=== PATIENT | female | born 1970 | race Caucasian/White ===

== ENCOUNTER → 2022-09-10 | Outpatient (CLI) | payer OTHER | LOC: M WHC 15:07 | PROVIDERS: ATTEND Family Medicine | DX: Z12.31 Encounter for screening mammogram for malignant neoplasm of breast (principal); Z80.3 Family history of malignant neoplasm of breast ==

== ENCOUNTER 2022-10-26 14:46 | Emergency (ER) | payer OTHER ==
[~2022-10-26] VITALS: Ht 157.5 cm; Wt 86.2 kg
[2022-10-26] MEDS ORDERED: KETOROLAC 60MG 2ML VIAL IM ONE (17:55)
[2022-10-26 18:46] VITALS: BP 130/70; TEMP 99.4; O2SAT 100
== END 2022-10-26 18:55 | disposition home or self-care (01) ==
LOC: M ED 14:46
DX: S60.221A Contusion of right hand, initial encounter (principal); S60.012A Contusion of left thumb without damage to nail, initial encounter; W19.XXXA Unspecified fall, initial encounter; Y92.89 Other specified places as the place of occurrence of the external cause
CPT/HCPCS: 73130; 96372; 99283; J1885

== ENCOUNTER → 2022-10-28 | Outpatient (CLI) | payer OTHER | LOC: M CARPUL 07:48 | PROVIDERS: ATTEND Nurse Practitioner Adult Health | DX: R06.02 Shortness of breath (principal) ==

== ENCOUNTER → 2022-10-30 | Outpatient (CLI) | payer OTHER ==
[~2022-10-30] MED LIST: METHACHOLINE KIT INH ONE
== END ==
LOC: M CARPUL 08:22
PROVIDERS: ATTEND Nurse Practitioner Adult Health
DX: R06.02 Shortness of breath (principal)
CPT/HCPCS: 94070; J7674

== ENCOUNTER → 2023-02-18 | Outpatient (CLI) | payer OTHER | LOC: M SLEEP 20:00 | PROVIDERS: ATTEND Nurse Practitioner Adult Health | DX: G47.8 Other sleep disorders (principal) ==

== ENCOUNTER 2023-05-25 11:34 | Day surgery (SDC) | payer OTHER ==
[~2023-05-25] VITALS: Ht 160 cm; Wt 87.0 kg
[~2023-05-25 11:34] MED LIST changes: +CALC250T PO; +ESTR62CR PV; +IRON65TA2 PO; -METHACHOLINE KIT INH ONE; +MYRB25TA PO; +NS 1,000 ML IV ONE; +PANT40TA29 PO; +PRENTAB53 PO; +[UNRECOGNIZED DRUG - OTHER] PO
[2023-05-25] MEDS ORDERED: fentaNYL 100 MCG/2 ML INJECTION As Ordered ONE (12:24)
[2023-05-25] MEDS ORDERED: propofoL 200 MG/20 ML VIAL As Ordered ONE ×2 (12:26→12:40)
[2023-05-25] MEDS ORDERED: LIDOCAINE 2% 100MG/5ML SDV (FOR ANES.) As Ordered ONE (12:26)
[2023-05-25 13:26] VITALS: BP 140/72; O2SAT 98
== END 2023-05-25 13:30 | disposition home or self-care (01) ==
LOC: M OPP 11:34
PROVIDERS: ATTEND Internal Medicine Gastroenterology
DX: K63.5 Polyp of colon (principal); R93.3 Abnormal findings on diagnostic imaging of other parts of digestive tract; K22.89 Other specified disease of esophagus; K44.9 Diaphragmatic hernia without obstruction or gangrene; K20.90 Esophagitis, unspecified without bleeding; Z98.84 Bariatric surgery status; Z79.890 Hormone replacement therapy; Z79.899 Other long term (current) drug therapy
CPT/HCPCS: 43239; 45380; 88305; J3010

== ENCOUNTER 2023-07-15 15:38 | Outpatient (CLI) | payer OTHER ==
[~2023-07-15 15:38] MED LIST changes: +ADVA115A INH; +FOLI1TAB11 PO; -NS 1,000 ML IV ONE; +VENTAER INH
[2023-07-15] MEDS: IRON SUCROSE 200 MG in NS 100 ML OVER 1 HR IV ONE (16:05)
[2023-07-15 16:29] VITALS: BP 140/66; O2SAT 100
== END 2023-07-15 17:30 ==
LOC: M INFU 15:38
PROVIDERS: ATTEND Internal Medicine Hematology & Oncology
DX: D50.9 Iron deficiency anemia, unspecified (principal)
CPT/HCPCS: 96365; J1756

== ENCOUNTER 2023-07-22 12:00 | Outpatient (CLI) | payer OTHER ==
[~2023-07-22] VITALS: Ht 160 cm; Wt 86.0 kg
[2023-07-22 12:07] VITALS: BP 156/72; O2SAT 100
[2023-07-22] MEDS: IRON SUCROSE 200 MG in NS 100 ML OVER 1 HR IV ONE (12:34)
[2023-07-22 13:34] VITALS: BP 134/66; O2SAT 100
== END 2023-07-22 13:40 ==
LOC: M INFU 12:00
PROVIDERS: ATTEND Internal Medicine Hematology & Oncology
DX: D50.9 Iron deficiency anemia, unspecified (principal)
CPT/HCPCS: 96365; J1756

== ENCOUNTER 2023-07-29 16:00 | Outpatient (CLI) | payer OTHER ==
[~2023-07-29] VITALS: Ht 160 cm; Wt 86.0 kg
[2023-07-29 16:00] VITALS: BP 149/70; O2SAT 98
[2023-07-29] MEDS: IRON SUCROSE 200 MG in NS 100 ML OVER 1 HR IV ONE (16:17)
[2023-07-29 17:25] VITALS: BP 141/80; O2SAT 100
== END 2023-07-29 17:25 ==
LOC: M INFU 16:00
PROVIDERS: ATTEND Internal Medicine Hematology & Oncology
DX: D50.9 Iron deficiency anemia, unspecified (principal)
CPT/HCPCS: 96365; J1756

== ENCOUNTER 2023-08-05 15:05 | Outpatient (CLI) | payer OTHER ==
[2023-08-05 15:05] VITALS: BP 141/67; O2SAT 98
[2023-08-05] MEDS: IRON SUCROSE 200 MG in NS 100 ML OVER 1 HR IV ONE (15:18)
[2023-08-05 16:25] VITALS: BP 144/62; O2SAT 98
== END 2023-08-05 16:28 | disposition home or self-care (01) ==
LOC: M INFU 15:05
PROVIDERS: ATTEND Internal Medicine Hematology & Oncology
DX: D50.9 Iron deficiency anemia, unspecified (principal)
CPT/HCPCS: 96365; J1756

== ENCOUNTER 2023-08-14 15:00 | Outpatient (CLI) | payer OTHER ==
[~2023-08-14] VITALS: Ht 167.6 cm; Wt 86.0 kg
[2023-08-14 15:00] VITALS: BP 156/71; O2SAT 97
[2023-08-14] MEDS: IRON SUCROSE 200 MG in NS 100 ML OVER 1 HR IV ONE (15:12)
[2023-08-14 16:45] VITALS: BP 146/82; O2SAT 99
== END 2023-08-14 16:45 ==
LOC: M INFU 15:00
PROVIDERS: ATTEND Internal Medicine Hematology & Oncology
DX: D50.9 Iron deficiency anemia, unspecified (principal)
CPT/HCPCS: 96365; J1756

== ENCOUNTER → 2023-09-17 | Outpatient (CLI) | payer OTHER ==
[2023-09-17 16:19] LABS: BASO % 0.4 % (0.0-1.0); EOS # 0.2 10^3/uL (0.0-0.5); EOS % 2.2 % (0.0-3.0); HEMATOCRIT 43.9 % (36.0-47.0); HEMOGLOBIN 14.3 g/dl (12.0-15.5); LYMPH % 28.3 % (24.0-44.0); MEAN CORPUSCULAR HEMOGLOBIN 26.7 pg (27.0-33.0); MEAN CORPUSCULAR HGB CONC 32.6 g/dl (32.0-36.5); MEAN CORPUSCULAR VOLUME 82.1 fl (80.0-96.0); MONO # 0.6 10^3/uL (0.0-0.8); NEUTROPHILS # 4.2 10^3/uL (1.5-8.5); NEUTROPHILS % 60.8 % (36.0-66.0); PLATELET COUNT, AUTOMATED 243 10^3/uL (150-450); RED BLOOD COUNT 5.35 10^6/uL (4.00-5.40)
[2023-09-17 16:42] LABS: PERCENT SATURATION 16.9 % (13.2-45.0)
[2023-09-17 16:44] LABS: FERRITIN 41.3 NG/ML (7.3-270.7)
== END ==
LOC: M LAB 15:32
PROVIDERS: ATTEND Specialist
DX: D50.9 Iron deficiency anemia, unspecified (principal)

== ENCOUNTER → 2023-12-18 | Outpatient (CLI) | payer OTHER ==
[~2023-12-18] MED LIST changes: +TOLT4CAP3 PO
[2023-12-18 16:46] LABS: BASO % 0.4 % (0.0-1.0); EOS % 0.2 % (0.0-3.0); HEMATOCRIT 43.5 % (36.0-47.0); HEMOGLOBIN 14.5 g/dl (12.0-15.5); LYMPH # 1.4 10^3/uL (1.5-5.0); LYMPH % 16.6 % (24.0-44.0); MEAN CORPUSCULAR HGB CONC 33.3 g/dl (32.0-36.5); MEAN CORPUSCULAR VOLUME 93.1 fl (80.0-96.0); MONO # 0.4 10^3/uL (0.0-0.8); MONO % 5.3 % (2.0-8.0); NEUTROPHILS # 6.4 10^3/uL (1.5-8.5); PLATELET COUNT, AUTOMATED 227 10^3/uL (150-450); RED BLOOD COUNT 4.67 10^6/uL (4.00-5.40); WHITE BLOOD COUNT 8.3 10^3/uL (4.0-10.0)
[2023-12-18 17:05] LABS: PERCENT SATURATION 15.1 % (13.2-45.0)
[2023-12-18 17:08] LABS: FERRITIN 239.8 NG/ML (7.3-270.7)
[2023-12-18 17:21] LABS: INR 0.96; PARTIAL THROMBOPLASTIN TIME 23.6 SECONDS (24.8-34.2); PROTHROMBIN TIME 12.5 SECONDS (12.5-14.5)
[2023-12-18 17:39] LABS: COLLAGEN EPINEPHRINE 89 SECONDS (74-162)
== END ==
LOC: M LAB 16:00
PROVIDERS: ATTEND Specialist
DX: D50.9 Iron deficiency anemia, unspecified (principal)

== ENCOUNTER → 2024-01-14 | Outpatient (CLI) | payer OTHER | LOC: M SOG 07:20 | PROVIDERS: ATTEND Orthopaedic Surgery | DX: M79.641 Pain in right hand (principal); M79.642 Pain in left hand ==

== ENCOUNTER → 2024-06-30 | Outpatient (CLI) | payer OTHER ==
[2024-06-30 09:33] LABS: BASO % 0.8 % (0.0-1.0); EOS # 0.1 10^3/uL (0.0-0.5); EOS % 1.3 % (0.0-3.0); HEMATOCRIT 40.4 % (36.0-47.0); HEMOGLOBIN 13.6 g/dl (12.0-15.5); LYMPH # 0.9 10^3/uL (1.5-5.0); LYMPH % 23.2 % (24.0-44.0); MEAN CORPUSCULAR HEMOGLOBIN 29.4 pg (27.0-33.0); MEAN CORPUSCULAR HGB CONC 33.7 g/dl (32.0-36.5); MEAN CORPUSCULAR VOLUME 87.3 fl (80.0-96.0); MONO # 0.4 10^3/uL (0.0-0.8); MONO % 11.1 % (2.0-8.0); NEUTROPHILS # 2.5 10^3/uL (1.5-8.5); NEUTROPHILS % 63.3 % (36.0-66.0); PLATELET COUNT, AUTOMATED 211 10^3/uL (150-450); RED BLOOD COUNT 4.63 10^6/uL (4.00-5.40); WHITE BLOOD COUNT 3.9 10^3/uL (4.0-10.0)
[2024-06-30 10:19] LABS: TOTAL IRON BINDING CAPACITY 286 UG/DL (250-425)
[2024-06-30 10:20] LABS: ALBUMIN 3.7 G/DL (3.2-5.2); ALKALINE PHOSPHATASE 262 U/L (35-104); ALT/SGPT 49 U/L (7.0-40); AST/SGOT 31 U/L (<34); BILIRUBIN,TOTAL 0.7 MG/DL (0.3-1.2); BLOOD UREA NITROGEN 9 MG/DL (9-23); CALCIUM LEVEL 8.3 MG/DL (8.5-10.1); CARBON DIOXIDE LEVEL 21 MMOL/L (20-31); CHLORIDE LEVEL 114 MMOL/L (98-107); CREATININE FOR GFR 0.69 MG/DL (0.55-1.30); GLOMERULAR FILTRATION RATE > 60.0 (>51); GLUCOSE, FASTING 68 MG/DL (60-100); IRON (FE) 49 UG/DL (50-170); PERCENT SATURATION 17.1 % (13.2-45.0); POTASSIUM SERUM 4.2 MMOL/L (3.5-5.1); SODIUM LEVEL 143 MMOL/L (136-145); TOTAL PROTEIN 6.2 G/DL (5.7-8.2)
[2024-06-30 10:32] LABS: VITAMIN B12 LEVEL 525 PG/ML (211-911)
[2024-06-30 10:34] LABS: FERRITIN 34.9 NG/ML (7.3-270.7); FOLATE 7.27 NG/ML (>5.4)
== END ==
LOC: M LAB 08:54
PROVIDERS: ATTEND Specialist
DX: D50.9 Iron deficiency anemia, unspecified (principal)

== ENCOUNTER 2024-07-21 15:50 | Outpatient (CLI) | payer OTHER ==
[~2024-07-21] VITALS: Ht 160 cm; Wt 70.4 kg
[~2024-07-21 15:50] MED LIST changes: +ALBUTEROL SULFATE 2.5MG/0.5ML INH CONCENTRATE NEB SOLN INH PRN; +EPINEPHrine INJ 1 MG/ML 1ML AMP IM PRN; +diphenhydrAMINE 50MG/ML VIAL IV PRN; +methylPREDNISolone 125MG 2ML VIAL IV PRN
[2024-07-21] MEDS ORDERED: diphenhydrAMINE 25MG CAP PO ONE (16:00)
[2024-07-21] MEDS ORDERED: ACETAMINOPHEN 650 MG PO ONE (16:00)
[2024-07-21 16:12] VITALS: BP 125/70; O2SAT 96
[2024-07-21] MEDS: IRON SUCROSE 200 MG IVP IV ONE (16:24)
[2024-07-21 17:00] VITALS: BP 132/59; O2SAT 100
== END 2024-07-21 17:00 ==
LOC: M INFU 15:50
PROVIDERS: ATTEND Family Medicine
DX: D50.9 Iron deficiency anemia, unspecified (principal)
CPT/HCPCS: 96374; J1756

== ENCOUNTER 2024-07-28 16:00 | Outpatient (CLI) | payer OTHER ==
[2024-07-28 16:00] VITALS: BP 112/77; O2SAT 99
[~2024-07-28 16:00] MED LIST changes: +diphenhydrAMINE 25MG CAP PO ONE
[2024-07-28] MEDS: IRON SUCROSE 200 MG IVP IV ONE (16:11)
[2024-07-28] MEDS: ACETAMINOPHEN 650 MG PO ONE (16:13)
[2024-07-28 16:45] VITALS: BP 115/68; O2SAT 99
== END 2024-07-28 16:50 ==
LOC: M INFU 16:00
PROVIDERS: ATTEND Family Medicine
DX: D50.9 Iron deficiency anemia, unspecified (principal)
CPT/HCPCS: 96374; J1756

== ENCOUNTER 2024-08-04 16:46 | Outpatient (CLI) | payer OTHER ==
[2024-08-04] MEDS: IRON SUCROSE 200MG/10ML VIAL IV ONE (16:36)
[~2024-08-04 16:46] MED LIST changes: +IRON SUCROSE 200 MG IVP IV ONE; -diphenhydrAMINE 25MG CAP PO ONE
[2024-08-04] MEDS: diphenhydrAMINE 25MG CAP PO ONE (16:52)
[2024-08-04] MEDS: ACETAMINOPHEN 650 MG PO ONE (16:52)
[2024-08-04 16:59] VITALS: BP 120/70; O2SAT 98
== END 2024-08-04 17:00 | disposition home or self-care (01) ==
LOC: M INFU 16:46
PROVIDERS: ATTEND Family Medicine
DX: D50.9 Iron deficiency anemia, unspecified (principal)
CPT/HCPCS: 96374; J1756

== ENCOUNTER 2024-08-11 15:55 | Outpatient (CLI) | payer OTHER ==
[~2024-08-11 15:55] MED LIST changes: +ALBUTEROL SULFATE 2.5MG/0.5ML INH CONCENTRATE NEB SOLN INH PRN; +EPINEPHrine INJ 1 MG/ML 1ML AMP IM PRN; +diphenhydrAMINE 50MG/ML VIAL IV PRN; +methylPREDNISolone 125MG 2ML VIAL IV PRN
[2024-08-11] MEDS ORDERED: diphenhydrAMINE 25MG CAP PO ONE (16:00)
[2024-08-11] MEDS ORDERED: ACETAMINOPHEN 650 MG PO ONE (16:00)
[2024-08-11] MEDS: IRON SUCROSE 200 MG IVP IV ONE (16:07)
[2024-08-11 16:13] VITALS: BP 119/58; O2SAT 99
[2024-08-11 16:38] VITALS: BP 122/59; O2SAT 100
[2024-08-11] MEDS ORDERED: IRON SUCROSE 200 MG IVP IV ONE (16:40)
== END 2024-08-11 16:38 | disposition home or self-care (01) ==
LOC: M INFU 15:55
PROVIDERS: ATTEND Family Medicine
DX: D50.9 Iron deficiency anemia, unspecified (principal)
CPT/HCPCS: 96374; J1756

== ENCOUNTER → 2024-08-11 | Outpatient (CLI) | payer OTHER ==
[~2024-08-11] MED LIST changes: -ALBUTEROL SULFATE 2.5MG/0.5ML INH CONCENTRATE NEB SOLN INH PRN; -EPINEPHrine INJ 1 MG/ML 1ML AMP IM PRN; -IRON SUCROSE 200 MG IVP IV ONE; -diphenhydrAMINE 50MG/ML VIAL IV PRN; -methylPREDNISolone 125MG 2ML VIAL IV PRN
[2024-08-11 17:29] LABS: BASO # 0.1 10^3/uL (0.0-0.2); BASO % 0.8 % (0.0-1.0); EOS # 0.3 10^3/uL (0.0-0.5); EOS % 3.4 % (0.0-3.0); HEMATOCRIT 40.6 % (36.0-47.0); HEMOGLOBIN 13.3 g/dl (12.0-15.5); LYMPH % 26.8 % (24.0-44.0); MEAN CORPUSCULAR HEMOGLOBIN 29.2 pg (27.0-33.0); MEAN CORPUSCULAR HGB CONC 32.8 g/dl (32.0-36.5); MONO # 0.5 10^3/uL (0.0-0.8); MONO % 6.2 % (2.0-8.0); NEUTROPHILS # 4.6 10^3/uL (1.5-8.5); NEUTROPHILS % 62.4 % (36.0-66.0); PLATELET COUNT, AUTOMATED 268 10^3/uL (150-450); RED BLOOD COUNT 4.56 10^6/uL (4.00-5.40); WHITE BLOOD COUNT 7.4 10^3/uL (4.0-10.0)
[2024-08-11 18:04] LABS: IRON (FE) 521 UG/DL (50-170); PERCENT SATURATION 188.8 % (13.2-45.0); TOTAL IRON BINDING CAPACITY 276 UG/DL (250-425)
[2024-08-11 18:05] LABS: ALBUMIN 3.7 G/DL (3.2-5.2); ALKALINE PHOSPHATASE 226 U/L (35-104); ALT/SGPT 54 U/L (7.0-40); AST/SGOT 29 U/L (<34); BILIRUBIN,TOTAL 0.4 MG/DL (0.3-1.2); BLOOD UREA NITROGEN 11 MG/DL (9-23); CALCIUM LEVEL 8.5 MG/DL (8.5-10.1); CARBON DIOXIDE LEVEL 18 MMOL/L (20-31); CHLORIDE LEVEL 113 MMOL/L (98-107); CREATININE FOR GFR 0.57 MG/DL (0.55-1.30); GLOMERULAR FILTRATION RATE > 90.0 (>51); GLUCOSE, FASTING 80 MG/DL (60-100); POTASSIUM SERUM 4.4 MMOL/L (3.5-5.1); SODIUM LEVEL 140 MMOL/L (136-145); TOTAL PROTEIN 6.2 G/DL (5.7-8.2)
[2024-08-11 18:06] LABS: FERRITIN 228.2 NG/ML (7.3-270.7); TOTAL 25(OH) VITAMIN D 18.6 NG/ML (20.0-100.0)
[2024-08-11 18:07] LABS: VITAMIN B12 LEVEL 667 PG/ML (211-911)
[2024-08-11 18:10] LABS: FOLATE 8.54 NG/ML (>5.4)
== END ==
LOC: M LAB 16:48
PROVIDERS: ATTEND Specialist
DX: D50.9 Iron deficiency anemia, unspecified (principal)

== ENCOUNTER 2024-08-18 15:53 | Outpatient (CLI) | payer OTHER ==
[~2024-08-18] VITALS: Ht 160 cm; Wt 79.5 kg
[2024-08-18] MEDS: IRON SUCROSE 200MG/10ML VIAL IV ONE (15:56)
[2024-08-18 15:57] VITALS: BP 168/71; O2SAT 100
[2024-08-18] MEDS ORDERED: ACETAMINOPHEN 650MG PO PRIOR TO INFUSION PO ONE (16:00)
[2024-08-18] MEDS ORDERED: diphenhydrAMINE 25MG PO PRIOR TO INFUSION PO ONE (16:00)
== END 2024-08-18 16:32 | disposition home or self-care (01) ==
LOC: M INFU 15:53
PROVIDERS: ATTEND Family Medicine
DX: D50.9 Iron deficiency anemia, unspecified (principal)
CPT/HCPCS: 96374; J1756

== ENCOUNTER → 2025-01-06 | Outpatient (CLI) | payer OTHER ==
[~2025-01-06] MED LIST changes: -ALBUTEROL SULFATE 2.5MG/0.5ML INH CONCENTRATE NEB SOLN INH PRN; -EPINEPHrine INJ 1 MG/ML 1ML AMP IM PRN; -diphenhydrAMINE 50MG/ML VIAL IV PRN; -methylPREDNISolone 125MG 2ML VIAL IV PRN
[2025-01-06 15:59] LABS: BASO # 0.0 10^3/uL (0.0-0.2); BASO % 0.7 % (0.0-1.0); EOS # 0.3 10^3/uL (0.0-0.5); EOS % 5.8 % (0.0-3.0); LYMPH # 1.8 10^3/uL (1.5-5.0); LYMPH % 32.5 % (24.0-44.0); MONO # 0.5 10^3/uL (0.0-0.8); MONO % 8.5 % (2.0-8.0); NEUTROPHILS # 3.0 10^3/uL (1.5-8.5); NEUTROPHILS % 52.1 % (36.0-66.0); PLATELET COUNT, AUTOMATED 219 10^3/uL (150-450)
[2025-01-06 16:13] LABS: INR 1.02
[2025-01-06 16:23] LABS: ESTIMATED AVERAGE GLUCOSE 77.0 MG/DL (60-110)
[2025-01-06 16:33] LABS: ALT/SGPT 86 U/L (7.0-40); AST/SGOT 39 U/L (<34); CALCIUM LEVEL 8.3 MG/DL (8.5-10.1); CARBON DIOXIDE LEVEL 21 MMOL/L (20-31); CHLORIDE LEVEL 113 MMOL/L (98-107); CREATININE FOR GFR 0.68 MG/DL (0.55-1.30); GLOMERULAR FILTRATION RATE > 90.0 (>51); POTASSIUM SERUM 4.1 MMOL/L (3.5-5.1); SODIUM LEVEL 142 MMOL/L (136-145)
== END ==
LOC: M LAB 13:44
PROVIDERS: ATTEND Orthopaedic Surgery
DX: G56.03 Carpal tunnel syndrome, bilateral upper limbs (principal)

== ENCOUNTER → 2025-01-09 | Outpatient (CLI) | payer OTHER | LOC: M WHC 07:21 | PROVIDERS: ATTEND Student in an Organized Health Care Education/Training Program | DX: Z12.31 Encounter for screening mammogram for malignant neoplasm of breast (principal); R92.323 Mammographic fibroglandular density, bilateral breasts ==